=== PATIENT | female | born 1950 | race Caucasian/White ===

== ENCOUNTER 2017-04-07 08:45 | Emergency (ER) | payer MEDICARE, BC ==
[~2017-04-07] VITALS: Ht 162.6 cm; Wt 113.0 kg
[2017-04-07] MEDS ORDERED: CEFAZOLIN 1,000 MG ONE (09:53)
[2017-04-07 09:55] LABS: HEMATOCRIT 38.5 % (34.6-47.8); HEMOGLOBIN 13.3 g/dL (11.7-16.4); WHITE BLOOD COUNT 5.1 x10^3/uL (3.4-10)
[2017-04-07 10:01] VITALS: BP 147/79
[2017-04-07 10:03] LABS: BLOOD UREA NITROGEN 14 mg/dL (7-18)
[2017-04-07] MEDS ORDERED: LEVO25TA4 PO (10:12)
[2017-04-07] MEDS ORDERED: VALS80TA3 PO (10:12)
[2017-04-07] MEDS ORDERED: CEFAZOLIN 1,000 MG IM ONE (11:00)
[2017-04-08] MEDS ORDERED: CEPH-368 PO (06:48)
== END 2017-04-07 10:39 | disposition home or self-care (01) ==
LOC: ED 10:31
DX: L03.115 Cellulitis of right lower limb (principal); F17.210 Nicotine dependence, cigarettes, uncomplicated
CPT/HCPCS: 36415; 80048; 82040; 85025; 93971; 96372; 99285; J0690

== ENCOUNTER 2017-04-08 06:31 | Emergency (ER) | payer MEDICARE, BC ==
[~2017-04-08] VITALS: Ht 162.6 cm; Wt 113.8 kg
[~2017-04-08 06:31] MED LIST: LEVO25TA4 PO; VALS80TA3 PO
[2017-04-08 06:35] VITALS: BP 151/84
[2017-04-08] MEDS ORDERED: CEPH-368 PO (06:48)
== END 2017-04-08 07:17 | disposition home or self-care (01) ==
LOC: ED 07:00
DX: L03.115 Cellulitis of right lower limb (principal); E03.9 Hypothyroidism, unspecified
CPT/HCPCS: 99281

== ENCOUNTER → 2017-04-10 | Outpatient (CLI) | payer MEDICARE, BC ==
[~2017-04-10] MED LIST changes: +CEPH-368 PO
== END | disposition home or self-care (01) ==
LOC: CFH 15:18
PROVIDERS: ATTEND Internal Medicine
DX: L03.115 Cellulitis of right lower limb (principal); M17.11 Unilateral primary osteoarthritis, right knee; M77.31 Calcaneal spur, right foot; M25.471 Effusion, right ankle

== ENCOUNTER → 2018-06-28 | Outpatient (CLI) | payer MEDICARE, BC | END | disposition home or self-care (01) | LOC: CFH 12:29 | PROVIDERS: ATTEND Internal Medicine | DX: Z12.31 Encounter for screening mammogram for malignant neoplasm of breast (principal); M81.0 Age-related osteoporosis without current pathological fracture; N95.8 Other specified menopausal and perimenopausal disorders; M85.9 Disorder of bone density and structure, unspecified | CPT/HCPCS: 77080; 77067 ==

== ENCOUNTER 2019-08-08 12:02 | Outpatient (CLI) | payer MEDICARE, BC | END 2019-08-08 23:59 | disposition home or self-care (01) | LOC: CFH 12:02 | PROVIDERS: ATTEND Licensed Practical Nurse | DX: Z12.31 Encounter for screening mammogram for malignant neoplasm of breast (principal); N64.89 Other specified disorders of breast | CPT/HCPCS: 77067 ==